=== PATIENT | male | born 1950 | race Caucasian/White ===

== ENCOUNTER 2016-11-11 12:17 | Emergency (ER) | payer MEDICARE, BC ==
--- NOTE | 2016-11-11 15:53 | ED ---
Lower Extremity - HPI Summary HPI Summary: Pt here w/ Lt LE achiness w/ edema x 3 weeks. Progressively worsening. Suspected a Velazquez's cyst with fullness behind the knee - no acute injury or activity out of routine so not sure how this started? Tried ASA yesterday and today. Concerned more about the swelling than the pain as this is mild. No priti instability. Denies numbness, tingling, weakness. He is able to bear weight w/o difficulty. No h/o travel, smoking, trauma, hormones, cancer or clots. Takes 81mg ASA daily. - History of Current Complaint Chief Complaint: EDExtremityLower Stated Complaint: LT LEG COMPLAINT Time Seen by Provider: 11/11/16 15:32 Hx Obtained From: Patient Pain Intensity: 3 - Allergies/Home Medications Allergies/Adverse Reactions: Allergies Allergy/AdvReac Type Severity Reaction Status Date / Time Cephalosporins Allergy Hives Verified 11/11/16 12:22 Penicillins Allergy Anaphylatic Verified 11/11/16 12:22 Shock Statins Allergy Hives Verified 11/11/16 12:22 Sulfa Antibiotics Allergy Hives Verified 11/11/16 12:22 PMH/Surg Hx/FS Hx/Imm Hx Previously Healthy: Yes Endocrine/Hematology History: Denies: Hx Anticoagulant Therapy, Hx Blood Disorders Cardiovascular History: Reports: Hx Hypertension - no longer takes meds Respiratory History: Reports: Hx Asthma Musculoskeletal History: Denies: Hx Arthritis Infectious Disease History: No Infectious Disease History: Denies: Traveled Outside the [place] in Last 30 Days - Family History Known Family History: Positive: None - Social History Occupation: Retired Lives: With Family Alcohol Use: Weekly Alcohol Amount: a couples times a week Hx Substance Use: No Substance Use Type: Reports: None Hx Tobacco Use: No Smoking Status (MU): Never Smoked Tobacco Review of Systems Constitutional: Negative Negative: Fever, Chills, Fatigue Negative: Chest Pain Negative: Shortness Of Breath Negative: Abdominal Pain, Vomiting, Nausea Positive: no symptoms reported Musculoskeletal: Other - see HPI Skin: Negative Negative: Rash, Bruising Neurological: Negative Negative: Weakness, Paresthesia, Numbness Psychological: Normal All Other Systems Reviewed And Are Negative: Yes Physical Exam Triage Information Reviewed: Yes Vital Signs On Initial Exam: Initial Vitals Temp Pulse Resp BP Pulse Ox 98.1 F 82 18 134/92 97 11/11/16 12:23 11/11/16 12:23 11/11/16 12:23 11/11/16 12:23 11/11/16 12:23 Vital Signs Reviewed: Yes Appearance: Positive: Well-Appearing, No Pain Distress, Well-Nourished Skin: Positive: Warm, Dry - no erythema, no edema, no fever to touch Head/Face: Positive: Normal Head/Face Inspection Eyes: Positive: EOMI ENT: Positive: Hearing grossly normal Cardiovascular: Positive: Pulses are Symmetrical in both Upper and Lower Extremities, Leg Edema Left - Lt popliteal fossa w/ edema - TTP; edema travels down into LE calf and ankle Musculoskeletal: Positive: Normal, Strength/ROM Intact - no laxity appreciated; (-) Special tests Neurological: Positive: Normal, Sensory/Motor Intact, Alert, Oriented to Person Place, Time Psychiatric: Positive: Normal Diagnostics - Vital Signs Vital Signs Temp Pulse Resp BP Pulse Ox 11/11/16 14:20 97.9 F 78 16 156/96 97 11/11/16 12:23 98.1 F 82 18 134/92 97 - Laboratory Lab Statement: Any lab studies that have been ordered have been reviewed, and results considered in the medical decision making process. Lower Extremity Course/Dx - Diagnoses Provider Diagnoses: Popliteal cyst Discharge - Discharge Plan Condition: Stable Disposition: HOME Patient Education Materials: Bakers Cyst (ED) Referrals: Dyllan Pierre MD [Medical Doctor] - Additional Instructions: Rest, ice, elevate, compress with BLADIMIR wrap Ibuprofen with food for pain, swelling Follow-up with orthopedics for further evaluation *If you develop redness, streaking, numbness, fever, chills, chest pain, shortness of breath, return to ED
--- NOTE | 2016-11-11 16:29 | RAD ---
Indication: Left knee edema. 4 views of the left knee demonstrates no fracture. No joint effusion is noted. Joint spaces well-preserved. IMPRESSION: No fracture of the left knee is noted.
--- NOTE | 2016-11-11 17:38 | RAD ---
Indication: Left leg edema.. Duplex Doppler sonography of the deep venous system of the left lower extremity deep venous system was performed. Bilaterally the common femoral veins appear patent and compressible. Left proximal greater saphenous vein, proximal deep femoral vein, femoral vein, popliteal vein, posterior tibial veins and peroneal veins appear patent and compressible. Complex fluid collection in the left popliteal fossa consistent with popliteal cyst measuring 12.6 x 0.8 x 5.1 cm. IMPRESSION: NO EVIDENCE OF DEEP VENOUS THROMBOSIS IS IDENTIFIED.
[2016-11-11 18:12] VITALS: BP 159/96
== END 2016-11-11 19:04 | disposition home or self-care (01) ==
LOC: ED 12:17
DX: M71.22 Synovial cyst of popliteal space [Baker], left knee (principal); J45.909 Unspecified asthma, uncomplicated; Z79.82 Long term (current) use of aspirin; Z88.0 Allergy status to penicillin; Z88.2 Allergy status to sulfonamides
CPT/HCPCS: 99282